=== PATIENT | male | born 1950 | race Caucasian/White ===

== ENCOUNTER → 2023-07-02 10:10 | Outpatient (REF) | payer MEDICARE, SELFPAY | LOC: RAD 10:10 | PROVIDERS: ATTENDING PHYSICIAN Nurse Practitioner Family | DX: J40 Bronchitis, not specified as acute or chronic (principal) | CPT/HCPCS: 71046 ==

== ENCOUNTER → 2024-03-16 08:13 | Outpatient (REF) | payer MEDICARE, SELFPAY | LOC: HWRAD 08:13 | PROVIDERS: ATTENDING PHYSICIAN Internal Medicine Critical Care Medicine; FAMILY PHYSICIAN Nurse Practitioner | DX: R06.02 Shortness of breath (principal); R05.3 Chronic cough | CPT/HCPCS: 71250 ==

== ENCOUNTER → 2024-07-17 14:36 | Outpatient (REF) | payer MEDICARE, SELFPAY | LOC: HWRAD 14:36 | PROVIDERS: ATTENDING PHYSICIAN Internal Medicine Critical Care Medicine; FAMILY PHYSICIAN Nurse Practitioner | DX: R91.1 Solitary pulmonary nodule (principal) | CPT/HCPCS: 71250 ==

== ENCOUNTER 2024-12-15 06:25 | Day surgery (SDC) | payer MEDICARE, SELFPAY | END 2024-12-15 13:59 | disposition home or self-care (01) | LOC: GI 06:25 | PROVIDERS: ATTENDING PHYSICIAN Internal Medicine Gastroenterology | DX: Z12.11 Encounter for screening for malignant neoplasm of colon (principal); R19.5 Other fecal abnormalities; K57.30 Diverticulosis of large intestine without perforation or abscess without bleeding; K64.8 Other hemorrhoids; D49.0 Neoplasm of unspecified behavior of digestive system; D12.2 Benign neoplasm of ascending colon; D12.3 Benign neoplasm of transverse colon; K63.5 Polyp of colon | CPT/HCPCS: 45380; 45381; 88305 ==

== ENCOUNTER 2025-01-16 06:20 | Day surgery (SDC) | payer MEDICARE, SELFPAY ==
[2025-01-16 13:25] VITALS: BP 140/81
[2025-01-16 13:28] VITALS: BMI 25.1
[2025-01-16 15:32] VITALS: BP 129/79
[2025-01-16 15:45] VITALS: BP 141/90
[2025-01-16 16:00] VITALS: BP 135/86
== END 2025-01-16 16:23 | disposition home or self-care (01) ==
LOC: SDS 06:20
PROVIDERS: ATTENDING PHYSICIAN Internal Medicine Gastroenterology
DX: D12.3 Benign neoplasm of transverse colon (principal); K63.89 Other specified diseases of intestine; K64.0 First degree hemorrhoids; K57.30 Diverticulosis of large intestine without perforation or abscess without bleeding
CPT/HCPCS: 45390; 45380; 88305

== ENCOUNTER → 2025-01-29 10:10 | Outpatient (REF) | payer MEDICARE, SELFPAY | LOC: HWRAD 10:10 | PROVIDERS: ATTENDING PHYSICIAN Internal Medicine Critical Care Medicine; FAMILY PHYSICIAN Nurse Practitioner | DX: R91.8 Other nonspecific abnormal finding of lung field (principal) | CPT/HCPCS: 71250 ==